=== PATIENT | female | born 1990 | race Caucasian/White ===

== ENCOUNTER 2021-07-04 22:12 | Emergency (ER) | payer OTHER ==
[~2021-07-04] VITALS: Ht 157.5 cm; Wt 59.0 kg
[2021-07-04] MEDS ORDERED: HYDROCODONE/ACETAMINOPHEN 5/325MG TABLET PO STA (23:00)
[2021-07-05] MEDS ORDERED: IBUP-2029 MT (01:39)
[2021-07-05 01:48] VITALS: BP 106/70
== END 2021-07-05 02:21 | disposition home or self-care (01) ==
LOC: ER 22:12
DX: S01.01XA Laceration without foreign body of scalp, initial encounter (principal); X58.XXXA Exposure to other specified factors, initial encounter; Y93.89 Activity, other specified; Y92.89 Other specified places as the place of occurrence of the external cause; Y99.8 Other external cause status; J45.909 Unspecified asthma, uncomplicated
CPT/HCPCS: 81025; 99284